=== PATIENT | female | born 1985 | race Caucasian/White ===

== ENCOUNTER 2019-06-23 13:18 | Outpatient (CLI) | payer BC, SELFPAY ==
[2019-06-23 14:49] LABS: Vitamin D 25 Hydroxy 30.5 ng/mL
[2019-06-27 05:10] LABS: Prolactin 9.2 ng/mL (***)
== END 2019-06-23 13:19 | disposition home or self-care (01) ==
PROVIDERS: PCP Family Medicine; Visit Provider Obstetrics & Gynecology
DX: N92.6 Irregular menstruation, unspecified (principal)
CPT/HCPCS: 36415; 82306; 84146; 84443

== ENCOUNTER 2020-04-27 12:58 | Outpatient (CLI) | payer BC, SELFPAY ==
[2020-04-27 13:44] LABS: Influenza Control Valid (Valid)
[2020-04-27 14:50] LABS: SARS-CoV-2 Ag Negative (Negative)
== END 2020-04-27 12:59 | disposition home or self-care (01) ==
LOC: CHSLAB 13:01
PROVIDERS: PCP Family Medicine; Visit Provider Family Medicine
DX: J00 Acute nasopharyngitis [common cold] (principal); Z20.822 Contact with and (suspected) exposure to COVID-19
CPT/HCPCS: 87081; 87426; 87804; 87880; C9803

== ENCOUNTER 2020-04-27 13:47 | Outpatient (CLI) | payer BC, SELFPAY ==
[2020-04-28 19:23] LABS: SARS-CoV-2 RNA PCR Negative
== END 2020-04-27 13:48 | disposition home or self-care (01) ==
LOC: CHSLAB 13:48
PROVIDERS: PCP Family Medicine; Visit Provider Family Medicine
DX: J00 Acute nasopharyngitis [common cold] (principal); Z20.822 Contact with and (suspected) exposure to COVID-19
CPT/HCPCS: C9803; U0003

== ENCOUNTER 2021-03-27 15:19 | Outpatient (CLI) | payer BC, SELFPAY ==
[2021-03-27 16:25] LABS: Strep Group A RT-PCR Negative (Negative)
[2021-03-27 16:38] LABS: Influenza A QL RT-PCR Negative (Negative); Influenza B QL RT-PCR Negative (Negative); SARS-CoV-2 RNA PCR Negative (Negative)
== END 2021-03-27 15:20 | disposition home or self-care (01) ==
LOC: CHSLAB 15:22
PROVIDERS: PCP Family Medicine; Visit Provider Family Medicine
DX: J06.9 Acute upper respiratory infection, unspecified (principal); Z20.822 Contact with and (suspected) exposure to COVID-19
CPT/HCPCS: 87502; 87651; C9803; U0003; U0005

== ENCOUNTER 2022-12-20 09:25 | Outpatient (CLI) | payer OTHER, SELFPAY ==
--- NOTE | ~2022-12-20 | MR_ITS ---
MRI of the brain Clinical History: Headache Technique: Axial and sagittal T1-weighted images were acquired. These were followed by axial T2-weigh kemi, diffusion weighted, gradient, and FLAIR images. Following intravenous administration of 70 cc Mu ltiHance gadolinium, T1-weighted fat-sat imaging was performed in the axial and coronal planes. Findings: No abnormal signal seen in the brain parenchyma. No acute infarct, intracranial hemorrhage, or mass lesion. Ventricles and some arachnoid spaces are unremarkable. Orbits are unremarkable. Paranasal sinuses and mastoid air cells are clear. Major intracranial flow voids are intact. Sagittal midline structures are intact. No abnormal postcontrast enhancement identified. IMPRESSION: Unremarkable exam. Reviewed, dictated and finalized at location . IMPRESSION: Unremarkable exam.
== END 2022-12-20 09:26 | disposition home or self-care (01) ==
LOC: CHSIMG 09:28
PROVIDERS: PCP Family Medicine; Visit Provider Family Medicine
DX: R51.9 Headache, unspecified (principal)
CPT/HCPCS: 70553; A9577

== ENCOUNTER 2023-05-06 15:16 | Outpatient (CLI) | payer OTHER, SELFPAY ==
[2023-05-06 16:44] LABS: HIV 1/2 Ab P24 Ag Result Negative (Negative)
[2023-05-06 17:01] LABS: Hepatitis B Surface Antigen Negative (Negative)
[2023-05-06 17:06] LABS: HAV RESULT Negative (Negative); Hepatitis B Core IgM Result Negative (Negative)
[2023-05-06 17:18] LABS: Hepatitis C Virus Antibody Negative (Negative)
[2023-05-07 15:50] LABS: Rapid Plasma Reagin Non-Reactive (NonReactive)
== END 2023-05-06 15:17 | disposition home or self-care (01) ==
LOC: ANHLAB 15:17
PROVIDERS: PCP Family Medicine; Visit Provider Obstetrics & Gynecology
DX: Z11.3 Encounter for screening for infections with a predominantly sexual mode of transmission (principal)
CPT/HCPCS: 36415; 80074; 86592; 86695; 86696; 86703; G0432

== ENCOUNTER 2023-08-17 10:25 | Emergency (ER) | payer OTHER, SELFPAY ==
[2023-08-17 10:30] VITALS: BP 109/67; PULSE 71; RESP 16; TEMP 36.9; O2SAT 99
--- NOTE | 2023-08-17 10:35 | ECG_ITS ---
SEE SCANNED COPY FOR CONFIRMED REPORT MTDD
--- NOTE | 2023-08-17 10:45 | ED.ALLEREA ---
HPI - Allergic Reaction General Chief complaint: Allergic Reaction Stated complaint: Rash Source: patient Mode of arrival: ambulatory Limitations: no limitations History of Present Illness HPI narrative: this is a 37-year-old female presents with allergic reaction with rash, urticaria with itching with some some mild chest tightness no shortness of breath no audible wheezing no fever chills no tongue swelling no nausea or vomiting no abdominal pain. Patient recently started on a new medication for depression, bupropion and subsequent to that had developed this rash with itching. Patient denies any other exposures to allergens. MD complaint: allergic reaction and hives Onset (ago): hour(s) Exposure: medication Symptoms: rash and itching Related Data Allergies Allergy/AdvReac Type Severity Reaction Status Date / Time Sulfa (Sulfonamide Allergy Intermediate Hives Verified 05/06/23 14:20 Antibiotics) Review of Systems Review of Systems: All systems reviewed & are unremarkable except as noted in HPI and below PMFSH Past Medical History Medical History Encounter for screening examination for sexually transmitted disease Migraines Surgical History Surgical History History of appendectomy History of (03/05/07) primary c/s-- distress History of laparoscopy dx lscope--infertility issues Family History Family History Mother Hypertension Grandparent Heart disease materrnal grandmother Malignant neoplasm of uterus maternal grandmother Malignant neoplasm of brain maternal grandfather Other Breast cancer maternal aunt Social History Social History Smoking status: Current every day smoker Tobacco type: cigarettes Second hand tobacco smoke exposure: Yes Alcohol intake: current Alcohol use details: 3-4 times a month Substance use: never Substance use type: does not use Living arrangements: other Additional living arrangements comments: (still living at house will not leave ) Occupation/Education: occupation 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 Gender identity (if verbalized by the patient): Female Sexual Orientation (if Verbalized by the Patient): Straight or Heterosexual Exam Const: General: healthy appearing, no acute distress and alert Nutritional Appearance: well nourished Orientation/consciousness: patient oriented x3 HENMT: Head: normal to inspection Eyes: Conjunctivae: conjunctivae normal Pupils: Equal, round and reactive pupils present Neck: Neck: normal visual inspection, no lymphadenopathy and no meningeal signs Chest: Chest palpation & inspection: normal inspection of the chest Resp: Effort & Inspection: normal respiratory effort Auscultation: clear to auscultation bilaterally Cardio: Rate: tachycardic Rhythm: regular rhythm GI: GI Palp: Yes Soft to palpation Auscultation: normal bowel sounds Skin: Other: Urticarial rash upper arms chest and facial area Neuro: General: patient oriented x3 and moves all extremities Cranial nerves: Yes Nystagmus not present Extrem: General: normal to inspection, no clubbing, cyanosis or edema and no pedal edema Psych: Affect: Anxious affect present Course Course Emergency Course: patient received 80mg IM Depo-Medrol reassessment allergy itching have improved, patient is anxious and given a dose of 0.5 alprazolam p.o.. EKG shows normal sinus rhythm with heart rate of 102. Patient appears anxious recently started on bupropion and is anxious because she feels like she finally found a medication that seems to be helping her. Advised to discontinue the bupropion and will prescribe alprazolam that she can take a
[2023-08-17] MEDS: ALPRAZolam (*CRX) 0.5 MG TABLET PO (10:49)
[2023-08-17] MEDS: methylPREDNISolone ACETATE 40 MG/ML VIAL 80 MG IM (10:49)
[2023-08-17 11:01] VITALS: BP 100/52; PULSE 103; RESP 20; TEMP 36.9; O2SAT 99
== END 2023-08-17 11:01 | disposition home or self-care (01) ==
PROVIDERS: Emergency Provider Emergency Medicine; PCP Family Medicine
DX: L50.9 Urticaria, unspecified (principal); F41.9 Anxiety disorder, unspecified; T78.40XA Allergy, unspecified, initial encounter; F17.210 Nicotine dependence, cigarettes, uncomplicated
CPT/HCPCS: 93005; 96372; 99283; A9270; J1010

== ENCOUNTER 2023-08-19 11:45 | Outpatient (CLI) | payer OTHER, SELFPAY ==
[2023-08-19 12:10] LABS: Basophils Absolute Auto 0.02 K/mm3 (0.00-0.10); Basophils Percent Auto 0.2 % (0.0-1.0); Eosinophils Absolute Auto 0.19 K/mm3 (0.02-0.50); Eosinophils Percent Auto 1.6 % (1.0-6.0); Hematocrit 37.5 % (35.0-49.0); Immature Granulocyte Absolute 0.11 K/mm3 (0.00-0.00); Immature Granulocyte Percent A 0.9 % (0.0-0.0); Lymphocytes Absolute Auto 3.64 K/mm3 (1.10-4.50); Lymphocytes Percent Auto 30.1 % (18.0-42.0); Mean Corpuscular Hemoglobin 29.6 pg (27.0-31.0); Mean Corpuscular Volume 92.6 fL (78.0-102.0); Mean Platelet Volume 9.3 fl (9.2-11.8); Monocytes Percent Auto 4.1 % (2.0-11.0); Neutrophils Absolute Auto 7.65 K/mm3 (1.70-7.20); Neutrophils Percent Auto 63.1 % (50.0-70.0); Platelet Count Result 434 K/mm3 (150-420); Red Blood Count 4.05 M/mm3 (4.20-5.40); Red Cell Distribution Width 12.6 % (11.6-14.4); White Blood Count 12.1 K/mm3 (4.8-10.8)
[2023-08-19 13:18] LABS: Anion Gap 11 mmol/L (4-12); Blood Urea Nitrogen 12 mg/dL (7-18); Calcium 8.2 mg/dL (8.5-10.1); Carbon Dioxide 27 mmol/L (21-32); Chloride 106 mmol/L (98-108); Estimated Glomerular Filt Rate > 60; Glucose 78 mg/dL (70-99); Osmolality Calculated 296 mOsm/kg (285-295); Potassium 3.6 mmol/L (3.5-5.1); Sodium 144 mmol/L (136-145)
== END 2023-08-19 11:46 | disposition home or self-care (01) ==
LOC: CHSLAB 11:48
PROVIDERS: PCP Family Medicine; Visit Provider Family Medicine
DX: R79.9 Abnormal finding of blood chemistry, unspecified (principal)
CPT/HCPCS: 36415; 80048; 85025